=== PATIENT | male | born 1940 | race African-American/Black ===

== ENCOUNTER 2021-07-29 09:55 | Emergency (ER) | payer MEDICARE, OTHER ==
[2021-07-29 12:36] LABS: Bilirubin Negative (Negative); Blood, Urine Large (Negative); Glucose, Urine (Dipstick) Negative (Negative); Ketone, Urine Negative (Negative); Leukocyte Moderate (Negative); Nitrite Positive (Negative); Protein, Urine (Dipstick) 30 mg/dL (Neg-Trace); Specific Gravity, Urine 1.015 (1.005-1.030)
[2021-07-29 12:42] LABS: Clarity Hazy (Clear)
[2021-07-29 12:43] LABS: Bacteria/HPF 2+ HPF (None Seen); Squamous Epithelial None Seen HPF (0-3); WBC/HPF 21-50 HPF (0-3)
[2021-07-29] MEDS ORDERED: Cephalexin 250 MG CAP ONE (12:58)
== END 2021-07-29 13:38 ==
LOC: NAV ERS 09:55
DX: N39.0 Urinary tract infection, site not specified (principal); E11.9 Type 2 diabetes mellitus without complications; E78.5 Hyperlipidemia, unspecified; I10 Essential (primary) hypertension; J44.9 Chronic obstructive pulmonary disease, unspecified; Z87.891 Personal history of nicotine dependence; Z79.82 Long term (current) use of aspirin; Z79.899 Other long term (current) drug therapy
CPT/HCPCS: 81003; 81015; 87077; 87086; 87186; 99283